=== PATIENT | female | born 1970 ===

== ENCOUNTER 2021-05-05 17:40 | Emergency (ER) | payer OTHER ==
[~2021-05-05] VITALS: Ht 157.5 cm; Wt 77.1 kg
[2021-05-05] MEDS ORDERED: LISINOPRIL10 MG (19:06)
== END 2021-05-07 | disposition home or self-care (01) ==
LOC: ER 17:40
DX: T88.1XXA Other complications following immunization, not elsewhere classified, initial encounter (principal); Y65.8 Other specified misadventures during surgical and medical care; Y82.8 Other medical devices associated with adverse incidents; Y92.89 Other specified places as the place of occurrence of the external cause